=== PATIENT | male | born 1995 | race Two or more races ===

== ENCOUNTER 2017-04-22 11:03 | Emergency (ER) | payer OTHER ==
[2017-04-22 11:20] VITALS: BP 115/57; PULSE 55; TEMP 98.3; BMI 36.6
[2017-04-22] MEDS ORDERED: KETOROLAC TROMETHAMINE 60 MG/2 ML VIAL IM ONE (12:21)
[2017-04-22] MEDS ORDERED: KETOROLAC TROMETHAMINE 60 MG/2 ML VIAL ONE (12:36)
--- NOTE | 2017-04-22 12:47 | PDOC ---
History of Present Illness - General Chief Complaint: Injury Stated Complaint: RT SIDE INJURY Time Seen by Provider: 04/22/17 11:46 History Source: Patient Exam Limitations: Language Barrier (armando Curiel [id number] ) - History of Present Illness Initial Comments: 04/22/17 12:44 22 yr male no PMHX fell at work while pushing heavy pieces of iron and fell injuring his right rib area on a piece of iron. Pt denies abd pain or vomiting neg nv neg sob. Occurred: reports: this afternoon Severity: reports: moderate Pain Location: reports: chest (right side ribs/flank area ) Past History - Past Medical History Allergies/Adverse Reactions: Allergies Allergy/AdvReac Type Severity Reaction Status Date / Time No Known Allergies Allergy Verified 04/22/17 11:17 Home Medications: Ambulatory Orders Ibuprofen 600 mg PO TID PRN #21 tablet 04/22/17 COPD: No - Immunization History Immunization Up to Date: Yes - Suicide/Smoking/Psychosocial Hx Smoking History: Never smoked Have you smoked in the past 12 months: No Information on smoking cessation initiated: No Hx Alcohol Use: No Drug/Substance Use Hx: No Substance Use Type: None Trauma Specific PMHX - Complaint Specific PMHX Arthritis: No Back Injury: No Neck Injury: No Hx Sacro Iliac Joint Dysfunction: No Review of Systems - Review of Systems Able to Perform ROS?: Yes Is the patient limited [place] proficient: No Constitutional: No: Symptoms Reported HEENTM: No: Symptoms Reported Respiratory: No: Symptoms reported Cardiac (ROS): No: Symptoms Reported ABD/GI: No: Symptoms Reported : No: Symptoms Reported Musculoskeletal: Yes: See HPI Neurological: No: Symptoms reported *Physical Exam - Vital Signs Last Vital Signs Temp Pulse Resp BP Pulse Ox 98.3 F 55 L 14 115/57 100 04/22/17 11:18 04/22/17 11:18 04/22/17 11:18 04/22/17 11:18 04/22/17 11:18 - Physical Exam General Appearance: Yes: Nourished, Appropriately Dressed HEENT: positive: EOMI, BRENDEN, Normal ENT Inspection, TMs Normal, Pharynx Normal Neck: positive: Supple. negative: Tender Respiratory/Chest: positive: Lungs Clear, Normal Breath Sounds, Other (tender to touch right rib area redness noted to the area of skin , no crepitus). negative: Chest Tender Cardiovascular: positive: Regular Rhythm, Regular Rate ED Treatment Course - RADIOLOGY Radiology Studies Ordered: Category Date Time Status RIBS RIGHT SIDE [RAD] Stat Radiology 04/22/17 12:43 Ordered - Medications Given in the ED: ED Medications Discontinued Medications Generic Name Dose Route Start Last Admin Trade Name Freq PRN Reason Stop Dose Admin Ketorolac Tromethamine 60 mg 04/22/17 12:21 04/22/17 12:40 Toradol Injection - IM 04/22/17 12:22 60 mg ONCE ONE Administration Medical Decision Making - Medical Decision Making 04/22/17 14:35 cc: rib pain right side will get xray toradol IM now pt denies sob or chest pain neg nvd pt feels better after toradol xray is negative discussed with pt and his coworker via translation all questions asked and answered pt aware to return to ER for any worsening symptoms 04/22/17 22:44 *DC/Admit/Observation/Transfer Diagnosis at time of Disposition: Rib contusion Qualifiers: Encounter type: initial encounter Laterality: right Qualified Code(s): S20.211A - Contusion of right front wall of thorax, initial encounter - Discharge Dispostion Disposition: HOME Condition at time of disposition: Good - Prescriptions Prescriptions: Ibuprofen 600 mg PO TID PRN #21 tablet PRN Reason: Pain - Referrals - Patient Instructions Additional Instructions: apply ice to the area every 2hrs for 20 minutes take motrin 600mg every 6hrs for pain return right away if symptoms worsen or persist any vomiting or diarrhea or any change in pain return to ER right away - Post Discharge Activity Forms/Work/School Notes: Back to Work
== END 2017-04-22 14:48 | disposition home or self-care (01) ==
LOC: JERFT 11:03
PROC: 3E0233Z Introduction of Anti-inflammatory into Muscle, Percutaneous Approach (ICD-10-PCS; principal; 2017-04-22)
DX: S20.211A Contusion of right front wall of thorax, initial encounter (principal); W01.198A Fall on same level from slipping, tripping and stumbling with subsequent striking against other object, initial encounter; Y93.H3 Activity, building and construction; Y92.69 Other specified industrial and construction area as the place of occurrence of the external cause; Y99.0 Civilian activity done for income or pay
CPT/HCPCS: 71101-TC-RT; 99281-25